=== PATIENT | female | born 2000 | race Caucasian/White ===

== ENCOUNTER 2023-12-20 05:28 | Emergency (ER) | payer MEDICAID ==
[~2023-12-20] VITALS: Ht 160 cm; Wt 49.9 kg
[2023-12-20 06:42] VITALS: BP 135/84; TEMP 98.2; O2SAT 99
== END 2023-12-20 06:42 | disposition home or self-care (01) ==
LOC: ER 05:32
DX: S01.81XA Laceration without foreign body of other part of head, initial encounter (principal); Y04.2XXA Assault by strike against or bumped into by another person, initial encounter; Y93.89 Activity, other specified; Y92.89 Other specified places as the place of occurrence of the external cause; Y99.8 Other external cause status

== ENCOUNTER 2023-12-25 00:56 | Emergency (ER) | payer SELFPAY ==
[~2023-12-25] VITALS: Ht 165.1 cm; Wt 49.9 kg
[2023-12-25 03:04] VITALS: BP 111/74; TEMP 98; O2SAT 100
== END 2023-12-25 03:04 | disposition home or self-care (01) ==
LOC: ER 00:59
DX: S01.81XD Laceration without foreign body of other part of head, subsequent encounter (principal); Z48.02 Encounter for removal of sutures; X58.XXXD Exposure to other specified factors, subsequent encounter